=== PATIENT | female | born 1940 | race Caucasian/White ===

== ENCOUNTER 2018-11-18 17:35 | Emergency (ER) | payer MEDICARE ==
[~2018-11-18] VITALS: Ht 160 cm; Wt 44.0 kg
[2018-11-18 18:28] LABS: BASOPHILS % (AUTO) 0.5 % (0-1); EOSINOPHILS % (AUTO) 0.3 % (0-6); HEMATOCRIT 40.7 % (35.0-45.0); HEMOGLOBIN 13.6 g/dl (12.0-16.0); LYMPHOCYTES # (AUTO) 2.2 X10'3 (1.1-4.8); LYMPHOCYTES % (AUTO) 26.7 % (21-51); MEAN CORPUSCULAR HEMOGLOBIN 29.6 PG (27.0-31.0); MEAN CORPUSCULAR HGB CONC 33.3 g/dL (33.0-36.5); MEAN CORPUSCULAR VOLUME 88.8 FL (78-98); MEAN PLATELET VOLUME 9.4 FL (7.4-10.4); MONOCYTES # (AUTO) 0.7 X10'3 (0-0.9); MONOCYTES % (AUTO) 8.1 % (2-12); NEUTROPHILS # (AUTO) 5.3 X10'3 (1.8-7.7); NEUTROPHILS % (AUTO) 64.4 % (42-75); PLATELET COUNT 210 X10'3 (140-440); RED BLOOD COUNT 4.58 X10'6 (4.20-5.60); RED CELL DISTRIBUTION WIDTH 14.6 % (11.5-14.5); WHITE BLOOD COUNT 8.2 X10'3 (4.5-11.0)
[2018-11-18 18:33] LABS: PARTIAL THROMBOPLASTIN TIME 27 SECONDS (22-32)
[2018-11-18 18:34] LABS: ALANINE AMINOTRANSFERASE 15 U/L (12-78); ALBUMIN 3.5 G/DL (3.4-5.0); ALBUMIN/GLOBULIN RATIO 0.8 (1.1-1.5); ALKALINE PHOSPHATASE 78 IU/L (46-116); ANION GAP 9 (8-16); ASPARTATE AMINO TRANSFERASE 13 U/L (10-37); BILIRUBIN,TOTAL 0.5 MG/DL (0.1-1.0); BLOOD UREA NITROGEN 14 MG/DL (7-18); BUN/CREATININE RATIO 16.3 (6.6-38.0); CALCIUM 9.2 MG/DL (8.5-10.1); CHLORIDE 107 MMOL/L (99-107); CREATININE 0.86 MG/DL (0.40-0.90); GLUCOSE 101 MG/DL (70-104); POTASSIUM 4.1 MMOL/L (3.5-5.1); SODIUM 143 MMOL/L (135-145); TOTAL CARBON DIOXIDE 26.7 MMOL/L (24-32); eGFR 64 ML/MIN
[2018-11-18 18:38] LABS: TROPONIN I 0.04 NG/ML (0.0-0.05)
[2018-11-18] MEDS ORDERED: ringers solution, lacted 1,000 ML IV ONE (18:40)
--- NOTE | 2018-11-18 18:45 | NUR ---
PATIENT REFUSED IV AND STATED THAT SHE WILL NOT STAY THE NIGHT WHETHER OR NOT SHE HAD A STROKE
--- NOTE | 2018-11-18 19:16 | NUR ---
DR JONAS IN ROOM WITH PATIENT; PATIENT IS GOING TO LEAVE AGAINST MEDICAL ADVICE, MD DISCUSSED THE POTENTIAL PROBLEMS OF LEAVING UP TO AND INCLUDING . DR JONAS TOLD PATIENT SHE HAS HAD A STROKE AND NEEDS FURTHER STUDIES SUCH A MRI AND CAROTID ULTRASOUND. WHEN I EXPLAINED THE STUDIES TO THE PATIENT, I STATED THAT DEPENDING ON THE RESULTS OF THE CAROTID ULTRASOUND, SHE MAY NEED A SURGERY. PATIENT STATED THAT "I AM NOT HAVING ANY SURGERY" PATIENT SIGNED AMA FORM AND STATED THAT SHE MIGHT RETURN IN THE AM.
--- NOTE | 2018-11-18 19:23 | NUR ---
PATIENT STATED THAT SHE IS GOING HOME AND WILL TAKE AN ASPIRIN WHEN SHE GETS HOME.
[2018-11-18 19:34] VITALS: BP 215/133
== END 2018-11-18 19:45 | disposition left against medical advice (07) ==
LOC: ER 17:36
DX: I63.9 Cerebral infarction, unspecified (principal)
CPT/HCPCS: 36415; 70450; 71045; 80053; 84484; 85025; 85610; 85730; 93005; 99284; J7120